=== PATIENT | male | born 1980 | race Caucasian/White ===

== ENCOUNTER 2021-01-24 13:18 | Emergency (ER) | payer OTHER ==
[~2021-01-24] VITALS: Ht 172.7 cm; Wt 70.3 kg
[2021-01-24 15:18] LABS: URINE BILIRUBIN NEGATIVE (Negative); URINE BLOOD 3+ (Negative); URINE COLOR YELLOW; URINE GLUCOSE-RANDOM NEGATIVE (Negative); URINE KETONES NEGATIVE (Negative); URINE LEUKOCYTES-REFLEX NEGATIVE (Negative); URINE NITRITE-REFLEX NEGATIVE (Negative); URINE PROTEIN TRACE (Negative); URINE SPECIFIC GRAVITY 1.025 (1.005-1.030); URINE UROBILINOGEN 0.2 E.U./dl (0.2-1.0)
[2021-01-24 15:19] LABS: URINE CLARITY HAZY
[2021-01-24 15:23] LABS: ABSOLUTE BASOPHILS 0.1 thou/uL (0.0-0.2); ABSOLUTE EOSINOPHILS 0.1 thou/uL (0.0-0.7); ABSOLUTE LYMPHOCYTES 1.2 thou/uL (0.8-5.3); ABSOLUTE MONOCYTES 1.2 thou/uL (0.0-1.2); ABSOLUTE NEUTROPHILS 11.5 thou/uL (1.6-8.1); BASOPHILS 0.5 %; EOSINOPHILS 0.5 %; HEMOGLOBIN 14.8 gm/dL (14.0-18.0); LYMPHOCYTES 8.6 %; MCH 29.5 pg (26.0-34.0); MCHC 33.6 g/dL (28.0-37.0); MCV 87.6 fL (80.0-100.0); MONOCYTES 8.7 %; MPV 7.3 fl. (7.2-11.1); NUCLEATED RBCS 0 /100WBC; PLATELET COUNT* 241 thou/uL (150-400); POLYS 81.7 %; RBC 5.02 mil/uL (4.50-6.00); RDW-CV 13.1 % (10.5-14.5); WBC 14.1 thou/uL (4.0-11.0)
[2021-01-24 15:27] LABS: BACTERIA-REFLEX None Seen /HPF (None Seen); CASTS None Seen /LPF (None Seen); CRYSTALS None Seen /LPF (None Seen); MUCUS 0-3 Light strn/LPF (None Seen); SQUAMOUS 0-3 Few /LPF (0-3); URINE RBC 3-10 Few /HPF (0-2); URINE WBC-REFLEX None Seen /HPF (0-5)
[2021-01-24 15:35] LABS: CALCIUM 9.1 mg/dL (8.5-10.1); CREATININE 1.4 mg/dL (0.6-1.3)
[2021-01-24 15:41] LABS: ALBUMIN 4.5 g/dL (3.4-5.0); TOTAL BILIRUBIN 0.6 mg/dL (<0.1-1.0); TOTAL PROTEIN 7.7 g/dL (6.4-8.2)
[2021-01-24] MEDS ORDERED: NORCO5 PO ×2 (17:13→17:20)
[2021-01-24] MEDS ORDERED: FLOMAX0.4 MG PO (17:13)
[2021-01-24] MEDS ORDERED: TORADOL 10 MG T10 MG PO (17:13)
[2021-01-24] MEDS ORDERED: ONDANSETRON ODT4 MG PO (17:13)
[2021-01-24 17:26] VITALS: BP 132/70
== END 2021-01-24 17:27 | disposition home or self-care (01) ==
LOC: M.ERS 13:18
PROVIDERS: Physician Assistant
DX: N20.0 Calculus of kidney (principal); F17.210 Nicotine dependence, cigarettes, uncomplicated